=== PATIENT | male | born 1940 | race Caucasian/White ===

== ENCOUNTER → 2020-10-24 | Outpatient (CLI) | payer OTHER | LOC: RAD 11:39 | DX: M79.671 Pain in right foot (principal); M19.071 Primary osteoarthritis, right ankle and foot | CPT/HCPCS: 73630; 73650 ==

== ENCOUNTER → 2020-12-05 | Outpatient (CLI) | payer OTHER | LOC: HEART 5 09:39 | DX: R06.02 Shortness of breath (principal) | CPT/HCPCS: 93306 ==

== ENCOUNTER → 2021-04-29 | Outpatient (CLI) | payer OTHER | LOC: EXRD 08:57 | DX: M25.641 Stiffness of right hand, not elsewhere classified (principal); M25.642 Stiffness of left hand, not elsewhere classified | CPT/HCPCS: 73130 ==

== ENCOUNTER → 2021-07-31 | Outpatient (CLI) | payer OTHER | LOC: EXRD 09:14 | DX: M48.50XA Collapsed vertebra, not elsewhere classified, site unspecified, initial encounter for fracture (principal); M85.80 Other specified disorders of bone density and structure, unspecified site; E55.9 Vitamin D deficiency, unspecified; M54.50 Low back pain, unspecified; M47.816 Spondylosis without myelopathy or radiculopathy, lumbar region | CPT/HCPCS: 72100 ==

== ENCOUNTER → 2021-08-14 | Outpatient (CLI) | payer OTHER | LOC: EXRD 12:43 | DX: M85.89 Other specified disorders of bone density and structure, multiple sites (principal) | CPT/HCPCS: 77080 ==